=== PATIENT | female | born 1970 | race African-American/Black ===

== ENCOUNTER 2016-05-18 10:48 | Emergency (ER) | payer OTHER ==
[~2016-05-18] VITALS: Ht 177.8 cm; Wt 101.0 kg
[2016-05-18 11:55] LABS: HEMATOCRIT 39.1 % (37.0-47.0); HEMOGLOBIN 13.1 g/dl (12.0-16.0); IMMATURE GRANULOCYTES 0.2 % (0.0-1.0); MEAN CELL VOLUME 87.5 fL CALC (80.0-100.0); MEAN CORPUSCULAR HGB 29.3 pG CALC (26.0-32.0); MEAN CORPUSCULAR HGB CONC 33.5 g/L CALC (32.0-36.0); NEUT# 2.83 thou/uL (2.00-7.15); RED BLOOD COUNT 4.47 mill/uL (4.20-5.60); RED CELL DISTRI WIDTH 14.4 % (11.5-15.5)
[2016-05-18 12:01] LABS: ALBUMIN 3.8 g/dL (3.2-5.0); ALKALINE PHOSPHATASE 86 u/l (38-126); ANION GAP 14 (6-22 (CALC)); BILIRUBIN, TOTAL 0.8 mg/dL (0.0-1.4); BUN 13 mg/dL (7-17); BUN/CREATININE RATIO 16 (12-20 (CALC)); CARBON DIOXIDE 25 mmol/l (22-30); CHLORIDE 107 mmol/l (95-108); CREATININE 0.8 mg/dL (0.5-1.0); GFR > 60 ML/MIN (>=60 (CALC)); GFR FOR AFR.AMER. > 60 ML/MIN (>=60 (CALC)); GLUCOSE 95 mg/dL (65-105); POTASSIUM 3.8 mmol/l (3.5-5.1); SGOT/AST 25 u/l (14-36); SGPT/ALT 21 u/l (9-52); SODIUM 142 mmol/l (137-146); TOTAL PROTEIN 7.2 g/dL (6.3-8.2)
[2016-05-18 12:09] LABS: URINE BILIRUBIN - DIPSTICK NEGATIVE (NEGATIVE); URINE BLOOD DIPSTICK LARGE (NEGATIVE); URINE COLOR YELLOW; URINE GLUCOSE - DIPSTICK NEGATIVE (NEGATIVE); URINE KETONE NEGATIVE (NEGATIVE); URINE LEUK ESTERASE NEGATIVE (NEGATIVE); URINE NITRITE - DIPSTICK NEGATIVE (Negative); URINE PH 6.5 (4.5-8.0); URINE PROTEIN - DIPSTICK NEGATIVE (NEG-TRACE); URINE UROBILINOGEN - DIPSTICK 0.2 E.U./dL (0.2)
[2016-05-18 12:13] LABS: URINE CLARITY SLIGHT CLOUDY
[2016-05-18 12:13] LABS: MYOGLOBIN 25 ng/mL (0 - 62)
[2016-05-18 12:14] LABS: URINE EPITHELIAL CELLS FEW EPI/hpf (0-FEW)
[2016-05-18] MEDS ORDERED: CLOPIDOGREL75 MG PO (12:24)
[2016-05-18] MEDS ORDERED: ZOLPIDEM10 MG PO (12:25)
[2016-05-18] MEDS ORDERED: CLONAZEPAM0.5 MG PO (12:25)
[2016-05-18] MEDS ORDERED: LEVOTHYROXIN100 MCG PO (12:25)
[2016-05-18] MEDS ORDERED: OXYMORPHONE HYD30 MG PO (12:26)
[2016-05-18] MEDS ORDERED: DILAUDID8 MG PO (12:27)
[2016-05-18] MEDS ORDERED: DIGOXIN0.125 MG PO (12:30)
[2016-05-18] MEDS ORDERED: SINGULAIR PO (12:30)
[2016-05-18] MEDS ORDERED: ZPAK PO (14:42)
[2016-05-18] MEDS ORDERED: NAPROSYN500 MG PO (14:49)
[2016-05-18 15:18] VITALS: BP 188/93
== END 2016-05-18 15:54 | disposition home or self-care (01) | DRG 313 ==
LOC: ED 10:48 → EDBD 10:48 → ED 11:34
PROVIDERS: Emergency Medicine
DX: R07.9 Chest pain, unspecified (principal); J18.9 Pneumonia, unspecified organism; R09.1 Pleurisy
CPT/HCPCS: Q9967

== ENCOUNTER 2016-10-20 00:07 | Observation (INO) | payer OTHER ==
[2016-10-20] VITALS (7 sets, daily range): BP systolic 156–171; BP diastolic 75–89
[~2016-10-20] VITALS: Ht 177.8 cm; Wt 97.1 kg
[~2016-10-20 00:07] MED LIST: CLONAZEPAM0.5 MG PO; CLOPIDOGREL75 MG PO; DIGOXIN0.125 MG PO; DILAUDID8 MG PO; LEVOTHYROXIN100 MCG PO; NAPROSYN500 MG PO; OXYMORPHONE HYD30 MG PO; SINGULAIR PO; ZOLPIDEM10 MG PO; ZPAK PO
[2016-10-20 00:56] LABS: HEMATOCRIT 36.6 % (37.0-47.0); HEMOGLOBIN 12.3 g/dl (12.0-16.0); IMMATURE GRANULOCYTES 0.3 % (0.0-1.0); MEAN CELL VOLUME 89.7 fL CALC (80.0-100.0); MEAN CORPUSCULAR HGB 30.1 pG CALC (26.0-32.0); MEAN CORPUSCULAR HGB CONC 33.6 g/L CALC (32.0-36.0); NEUT# 6.82 thou/uL (2.00-7.15); RED BLOOD COUNT 4.08 mill/uL (4.20-5.60); RED CELL DISTRI WIDTH 14.2 % (11.5-15.5)
[2016-10-20 01:44] LABS: ALBUMIN 3.7 g/dL (3.2-5.0); ALKALINE PHOSPHATASE 74 u/l (38-126); ANION GAP 14 (6-22 (CALC)); BILIRUBIN, TOTAL 0.7 mg/dL (0.0-1.4); BUN 18 mg/dL (7-17); BUN/CREATININE RATIO 24 (12-20 (CALC)); CALCIUM 9.1 mg/dL (8.4-10.2); CARBON DIOXIDE 20 mmol/l (22-30); CHLORIDE 106 mmol/l (95-108); CREATININE 0.7 mg/dL (0.5-1.0); GFR > 60 ML/MIN (>=60 (CALC)); GFR FOR AFR.AMER. > 60 ML/MIN (>=60 (CALC)); GLUCOSE 155 mg/dL (65-105); POTASSIUM 3.8 mmol/l (3.5-5.1); SGOT/AST 18 u/l (14-36); SGPT/ALT 24 u/l (9-52); SODIUM 135 mmol/l (137-146); TOTAL PROTEIN 6.6 g/dL (6.3-8.2)
[2016-10-20 01:52] LABS: ACT PARTIAL THROMBO TIME 23.6 SECONDS (20.0-32.5); INTERNATIONAL NORMALIZED RATIO 0.9 RATIO (0.7-1.3); PROTHROMBIN TIME 9.8 SECONDS (9.0-12.5)
[2016-10-20 01:56] LABS: MYOGLOBIN 29 ng/mL (0 - 62)
[2016-10-20 02:45] LABS: URINE BILIRUBIN - DIPSTICK NEGATIVE (NEGATIVE); URINE BLOOD DIPSTICK TRACE-INTACT (NEGATIVE); URINE CLARITY CLEAR; URINE COLOR YELLOW; URINE GLUCOSE - DIPSTICK NEGATIVE (NEGATIVE); URINE KETONE NEGATIVE (NEGATIVE); URINE LEUK ESTERASE TRACE (NEGATIVE); URINE NITRITE - DIPSTICK NEGATIVE (Negative); URINE PROTEIN - DIPSTICK NEGATIVE (NEG-TRACE); URINE UROBILINOGEN - DIPSTICK 0.2 E.U./dL (0.2)
[2016-10-20 04:16] LABS: BARBITURATES NEGATIVE (NEGATIVE); COCAINE NEGATIVE (NEGATIVE); METHADONE NEGATIVE (NEGATIVE); OXCYCODONE NEGATIVE (NEGATIVE); TETRAHYDROCANNABIONOL NEGATIVE (NEGATIVE); TRICYLIC ANTIDEPRESSANTS NEGATIVE (NEGATIVE)
[2016-10-20 07:46] LABS: TSH, 3RD GENERATION 10.3 uIU/mL (0.47 - 4.68)
[2016-10-20] MEDS ORDERED: PANTOPRAZOLE SO40 M1 PO (14:16)
== END 2016-10-20 14:50 | disposition home or self-care (01) | DRG 313 ==
LOC: ED 00:07 → ED-I 03:36 → ED 04:15 → ICU 04:16
PROVIDERS: Emergency Medicine; ADMIT Internal Medicine; ATTEND Internal Medicine
DX: R07.89 Other chest pain (principal); I10 Essential (primary) hypertension; E03.9 Hypothyroidism, unspecified; G89.29 Other chronic pain; M54.9 Dorsalgia, unspecified; M54.2 Cervicalgia; M19.90 Unspecified osteoarthritis, unspecified site; I49.9 Cardiac arrhythmia, unspecified; K21.9 Gastro-esophageal reflux disease without esophagitis

== ENCOUNTER 2016-12-29 05:24 | Emergency (ER) | payer SELFPAY ==
[~2016-12-29] VITALS: Ht 177.8 cm; Wt 100.4 kg
[~2016-12-29 05:24] MED LIST changes: +PANTOPRAZOLE SO40 M1 PO
[2016-12-29] MEDS ORDERED: ULTRAM50 M1 PO (06:43)
[2016-12-29 07:11] VITALS: BP 155/88
== END 2016-12-29 07:24 | disposition home or self-care (01) | DRG 563 ==
LOC: ED 05:24
DX: S63.501A Unspecified sprain of right wrist, initial encounter (principal); G56.01 Carpal tunnel syndrome, right upper limb; I10 Essential (primary) hypertension; E03.9 Hypothyroidism, unspecified; M19.90 Unspecified osteoarthritis, unspecified site; I49.9 Cardiac arrhythmia, unspecified; X50.3XXA Overexertion from repetitive movements, initial encounter; Y93.H1 Activity, digging, shoveling and raking

== ENCOUNTER 2017-12-26 13:11 | Emergency (ER) | payer BC ==
[~2017-12-26] VITALS: Ht 177.8 cm; Wt 89.1 kg
[~2017-12-26 13:11] MED LIST changes: +ULTRAM50 M1 PO
[2017-12-26 13:53] LABS: HEMATOCRIT 36.5 % (37.0-47.0); IMMATURE GRANULOCYTES 1.1 % (0.0-5.0); MEAN CORPUSCULAR HGB 27.3 pG CALC (26.0-32.0); MEAN CORPUSCULAR HGB CONC 32.9 g/L CALC (32.0-36.0); NEUT# 3.31 thou/uL (2.00-7.15); RED BLOOD COUNT 4.4 mill/uL (4.20-5.60); RED CELL DISTRI WIDTH 19.9 % (11.5-15.5)
[2017-12-26 14:00] LABS: ANION GAP 13 (6-22 (CALC)); BUN 10 mg/dL (7-17); BUN/CREATININE RATIO 13 (12-20 (CALC)); CARBON DIOXIDE 25 mmol/l (22-30); CHLORIDE 105 mmol/l (95-108); CREATININE 0.8 mg/dL (0.5-1.0); GFR > 60 ML/MIN (>=60 (CALC)); GFR FOR AFR.AMER. > 60 ML/MIN (>=60 (CALC)); POTASSIUM 3.5 mmol/l (3.5-5.1); SODIUM 139 mmol/l (137-146)
[2017-12-26] MEDS ORDERED: KEFLEX500 M1 PO (17:11)
[2017-12-26] MEDS ORDERED: BACTROBAN TOP (17:11)
[2017-12-26 17:30] VITALS: BP 178/79
== END 2017-12-26 17:30 | disposition home or self-care (01) | DRG 313 ==
LOC: ED 13:11
PROVIDERS: Family Medicine
DX: R07.9 Chest pain, unspecified (principal); J02.0 Streptococcal pharyngitis; L01.00 Impetigo, unspecified; I10 Essential (primary) hypertension; K21.9 Gastro-esophageal reflux disease without esophagitis; E07.9 Disorder of thyroid, unspecified